=== PATIENT | male | born 1995 | race Asian ===

== ENCOUNTER → 2017-04-19 | Outpatient (CLI) | payer OTHER | LOC: BMCIMAGING 13:18 | PROVIDERS: ATTEND Podiatrist Foot & Ankle Surgery | DX: M10.071 Idiopathic gout, right ankle and foot (principal) ==

== ENCOUNTER 2018-09-02 02:58 | Emergency (ER) | payer OTHER ==
[2018-09-02] MEDS ORDERED: FAMOTIDINE 20 MG/NACL 50 ML IV ONE (03:48)
--- NOTE | 2018-09-02 03:51 | EDPHY ---
H & P Stated Complaint: vomiting and abd / cp Time Seen by Provider: 09/02/18 03:01 HPI/ROS: HPI The patient presents with chest pain which began this afternoon. The patient went out last night and had multiple alcoholic drinks, about 5-6. He began vomiting last night and awoke this morning and continued to have vomiting that was forceful. After an episode of vomiting he developed chest pain which he describes as a dull sensation which begins in his epigastrium and radiates throughout his chest and right shoulder. This is associated with shortness of breath which is worse when he lies flat. He has no prior history of similar.. REVIEW OF SYSTEMS 10 systems were reviewed and negative with the exception of the elements mentioned in the history of present illness. PMHx: Healthy Soc Hx: College student, drinks alcohol frequently PHYSICAL General Appearance: Alert, no distress Eyes: Pupils equal and round no pallor or injection ENT, Mouth: Mucous membranes moist Respiratory: There are no retractions, lungs are clear to auscultation, no crepitus is present Cardiovascular: Regular rate and rhythm Gastrointestinal: Abdomen is soft with tenderness in the epigastrium, no masses , bowel sounds normal Neurological: A&O, moves all extremities Skin: Warm and dry, no rashes Musculoskeletal: Neck is supple non tender Extremities: symmetrical, full range of motion Psychiatric: Patient is oriented X 3, there is no agitation Source: Patient Exam Limitations: No limitations - Personal History Current Tetanus/Diphtheria Vaccine: Yes Current Tetanus Diphtheria and Acellular Pertussis (TDAP): Yes - Medical/Surgical History Hx Asthma: No Hx Chronic Respiratory Disease: No Hx Diabetes: No Hx Cardiac Disease: No Hx Renal Disease: No Hx Cirrhosis: No Hx Alcoholism: No Hx HIV/AIDS: No Hx Splenectomy or Spleen Trauma: No - Social History Smoking Status: Current some day smoker Constitutional: Initial Vital Signs Temperature (C) 36.3 C 09/02/18 03:03 Heart Rate 86 09/02/18 03:03 Respiratory Rate 19 09/02/18 03:03 Blood Pressure 143/97 H 09/02/18 03:03 O2 Sat (%) 95 09/02/18 03:03 O2 Delivery Mode Room Air Allergies/Adverse Reactions: No Known Allergies Allergy (Unverified 09/02/18 03:03) Home Medications: Medication Instructions Recorded Famotidine [Pepcid 20 MG (*)] 20 mg PO BID #30 tab 09/02/18 Medical Decision Making - Diagnostics EKG Interpretation: EKG: Complete interpretation has been separately recorded in the [employer] archive. Summary impression: Diffuse ST segment elevation consistent with J- point Imaging Results: Chest x-ray two view shows elevated right hemidiaphragm, interpreted by me, radiology interpretation pending. CT abdomen pelvis with IV contrast demonstrates mild inflammatory stranding of the retroperitoneal fat just posterior to the pancreas. This finding is nonspecific and an of unknown clinical significance in this patient correlate with markers for pancreatitis, interpreted by direct Radiology. Differential Diagnosis: 23-year-old male presents with vomiting followed by epigastric and chest pain with shortness of breath. Differential diagnosis includes Boerhaave syndrome, pneumothorax, esophageal spasm, alcoholic gastritis, pancreatitis. Patient received famotidine and felt a bit better. Chest x-ray demonstrated elevated right hemidiaphragm. There is no pneumomediastinum to raise suspicion for Boerhaave syndrome. Patient does have pain that radiates toward his right shoulder making me wonder if this is clinically significant. The patient has no clear reason to have phrenic nerve paralysis. Chest x-ray does not reveal any mediastinal mass, patient did not suffer from any direct trauma on repeat questioning. There is no atelectasis or lung abnormality of the right lung that I can tell. The patient does not have any leg swelling, recent airplane flight, personal history of DVT PE. He is PERC negative. Because of this CT scan of the abdomen was obtained to evaluate for any subdiaphragmatic mass. This was relatively negative. Patient had some inflammatory stranding of retroperitoneal fat posterior to the pancreas. Could be related to mild pancreatitis in the setting of alcohol use, however lipase is normal. Cause of elevated hemidiaphragm could be splinting because of his epigastric pain. In the emergency department, his symptoms improved significantly. Ultimately, I feel he is suffering from gastritis, triggered by alcohol use. I have discussed this with him I have also explained that he should have a repeat chest x-ray to evaluate his diaphragm in the next week or so. Because there is some clinical uncertainty, I have issued him strict return precautions. He is able to return if he is not improved. - Data Points Laboratory Results: Laboratory Results 09/02/18 03:30 09/02/18 03:30 Medications Given: Discontinued Medications Famotidine/Sodium Chloride (Pepcid 20 Mg (Premix)) 50 mls @ 200 mls/hr IV EDNOW ONE Stop: 09/02/18 04:02 Last Admin: 09/02/18 03:52 Dose: 50 mls Ondansetron HCl (Zofran Odt 4 Mg Prepack#2) 1 btl TAKEHOME EDNOW ONE Stop: 09/02/18 05:47 Last Admin: 09/02/18 05:52 Dose: 1 btl Point of Care Test Results: Chemistry 09/02/18 03:31 POC Troponin I 0.00 ng/mL ng/mL (0.00-0.08) Departure - Departure Disposition: Home, Routine, Self-Care Clinical Impression: Epigastric abdominal pain, Elevated hemidiaphragm Vomiting Qualifiers: Vomiting type: unspecified Vomiting Intractability: non-intractable Nausea presence: with nausea Qualified Code(s): R11.2 - Nausea with vomiting, unspecified Condition: Good Instructions: Ondansetron (By mouth), Acute Abdominal Pain (ED) Additional Instructions: Please return if your worse in any way. Your symptoms should only be improving. I would like for you to follow up with the [facility] in the next 1 week for repeat x-ray. Referrals: [facility] ,. [Clinic] - As per Instructions Prescriptions: Famotidine [Pepcid 20 MG (*)] 20 mg PO BID #30 tab
[2018-09-02 03:57] LABS: PLATELET COUNT 427 10^3/uL (150-400)
[2018-09-02] MEDS ORDERED: IOPAMIDOL (ISOVUE-300) 100 ML BTL ONE (04:37)
[2018-09-02] MEDS ORDERED: ONDANSETRON 4MG PREPACK#2 BTL TAKEHOME ONE (05:46)
[2018-09-02 05:59] VITALS: BP 142/86
--- NOTE | 2018-09-03 07:11 | CPEKG ---
Test Reason : OPEN Blood Pressure : / mmHG Vent. Rate : 085 BPM Atrial Rate : 087 BPM P-R Int : 145 ms QRS Dur : 106 ms QT Int : 363 ms P-R-T Axes : 038 031 028 degrees QTc Int : [address] elev, probable normal early repol pattern Confirmed by Sabrina Butt ([id number]) on 09/03/2018 7:11:21 AM Referred By: Sabrina Butt Confirmed By:Sabrina Butt
== END 2018-09-02 05:59 | disposition home or self-care (01) ==
DX: R07.9 Chest pain, unspecified (principal); R10.13 Epigastric pain; R11.2 Nausea with vomiting, unspecified; J98.6 Disorders of diaphragm; F17.200 Nicotine dependence, unspecified, uncomplicated
CPT/HCPCS: 84484-ER; 96365; Q9967